=== PATIENT | male | born 1995 | race Caucasian/White ===

== ENCOUNTER 2016-04-27 14:46 | Emergency (ER) | payer OTHER ==
[2016-04-27] MEDS ORDERED: HYDROcod/ACETAM 5/325 MG TABLET PO STA (15:33)
[2016-04-27] MEDS ORDERED: HYDROcod/ACETAM 5/325 MG TABLET ONE (15:35)
== END 2016-04-27 15:42 | disposition home or self-care (01) ==
DX: S43.101A Unspecified dislocation of right acromioclavicular joint, initial encounter (principal); W01.0XXA Fall on same level from slipping, tripping and stumbling without subsequent striking against object, initial encounter; Y93.89 Activity, other specified; Y99.8 Other external cause status
CPT/HCPCS: 73030; 99282; 99283; A9270

== ENCOUNTER 2016-05-10 11:04 | Day surgery (SDC) | payer OTHER ==
[2016-05-10] MEDS ORDERED: ceFAZolin 2 GM/50 ML 50 ML IV ONE (11:21)
[2016-05-10] MEDS ORDERED: ACETAMINOPHEN 1,000 MG/100 ML 100 ML IV ONE (11:22)
[2016-05-10] MEDS ORDERED: CELECOXIB 100 MG CAPSULE PO ONE (11:22)
[2016-05-10] MEDS ORDERED: LACTATED RINGERS 1,000 ML IV ONE (11:30)
[2016-05-10] MEDS ORDERED: BUPIVACAINE 0.5% PF 30 ML VIAL INFIL ONE ×2 (14:01→16:28)
[2016-05-10] MEDS ORDERED: ONDANSETRON 4 MG/2 ML VIAL IVP ONE (14:15)
[2016-05-10] MEDS ORDERED: LIDOCAINE-MPF 2% 5 ML VIAL IM ONE (14:15)
[2016-05-10] MEDS ORDERED: GLYCOPYRROLATE 1 MG/5 ML VIAL IVP ONE (14:15)
[2016-05-10] MEDS ORDERED: ROCURONIUM 50 MG/5 ML VIAL IVP ONE (14:15)
[2016-05-10] MEDS ORDERED: NEOSTIGMINE 1 MG/1 ML 10 ML MDV IVP ONE (14:15)
[2016-05-10] MEDS ORDERED: SUCCINYLCHOLINE 200 MG/10 ML VIAL IVP ONE (14:15)
[2016-05-10] MEDS ORDERED: PHENYLEPHRINE 10 MG/ML VIAL IV ONE (14:15)
[2016-05-10] MEDS ORDERED: DEXAMETHASONE 4 MG/ML VIAL IVP ONE (14:15)
[2016-05-10] MEDS ORDERED: PROPOFOL 200 MG/20 ML VIAL IVP ONE (14:15)
[2016-05-10] MEDS ORDERED: MIDAZOLAM 2 MG/2 ML VIAL IVP ONE (14:15)
[2016-05-10] MEDS ORDERED: fentaNYL 250 MCG/5 ML VIAL IVP ONE (14:15)
[2016-05-10] MEDS ORDERED: ONDANSETRON 4 MG/2 ML VIAL ONE (16:40)
[2016-05-10] MEDS ORDERED: oxyCOD/ACETAMIN 5 MG/325 MG TABLET PO ONE (17:51)
== END 2016-05-10 11:05 | disposition home or self-care (01) ==
PROC: 0PB90ZZ Excision of Right Clavicle, Open Approach (ICD-10-PCS; 2016-05-10)
PROC: 0MU Bursae and Ligaments, Supplement (ICD-10-PCS; principal; 2016-05-10 12:25)
DX: S43.101A Unspecified dislocation of right acromioclavicular joint, initial encounter (principal); W19.XXXA Unspecified fall, initial encounter; Y93.69 Activity, other involving other sports and athletics played as a team or group; Y92.39 Other specified sports and athletic area as the place of occurrence of the external cause
CPT/HCPCS: 23120; 23929; 73030; A9270; C1713; C1762; J0131; J0690; J3010; J7120